=== PATIENT | female | born 1970 | race Caucasian/White ===

== ENCOUNTER 2018-11-26 18:47 | Emergency (ER) | payer OTHER ==
[~2018-11-26] VITALS: Ht 172.7 cm; Wt 99.8 kg
--- NOTE | 2018-11-26 19:25 | NUR ---
Patient BIB [facility] accompanied by [employer] for medical screening for psych evaluation. [id number] for DTS/DTO by [employer] ( Officer badge #[id number])
[2018-11-26 19:50] LABS: BASOPHILS % (AUTO) 0.5 % (0.0-2.0); EOSINOPHILS # (AUTO) 0.1 K/uL (0.0-0.7); EOSINOPHILS % (AUTO) 1.2 % (0.0-7.0); HEMATOCRIT 41.3 % (31.2-41.9); LYMPHOCYTES # (AUTO) 2.1 K/uL (20.0-40.0); LYMPHOCYTES % (AUTO) 25.7 % (20.5-51.5); MEAN CORPUSCULAR HGB CONC 34 g/dL (32.3-35.6); MEAN CORPUSCULAR VOLUME 94.5 fL (75.5-95.3); MONOCYTES # (AUTO) 0.7 K/uL (2.0-10.0); MONOCYTES % (AUTO) 8.9 % (0.0-11.0); NEUTROPHILS # (AUTO) 5.1 K/uL (1.8-8.9); NEUTROPHILS % (AUTO) 63.7 % (38.5-71.5); PLATELET COUNT (AUTO) 318 K/uL (179-408); RED BLOOD CELL COUNT(AUTO) 4.37 MIL/uL (3.63-4.92); WHITE BLOOD COUNT (AUTO) 8.1 K/uL (3.8-11.8)
--- NOTE | 2018-11-26 19:50 | NUR ---
Xray at bedside.
[2018-11-26 19:58] LABS: CARBON DIOXIDE 27 mmol/L (21-32); CHLORIDE 103 mmol/L (98-107); CREATININE 0.8 mg/dL (0.6-1.3); GLUCOSE 103 mg/dL (74-106); POTASSIUM 3.1 mmol/L (3.5-5.1); UREA NITROGEN, BLOOD 15 mg/dL (7-18)
[2018-11-26 20:07] LABS: ETHANOL < 3 MG/DL (0-0)
[2018-11-26 20:12] LABS: THYROID STIMULATING HORMONE 3.252 mIU/mL (0.358-3.740)
[2018-11-26 20:13] LABS: ALANINE AMINOTRANSFERASE 48 U/L (14-59); ALKALINE PHOSPHATASE 76 U/L (50-136); ASPARTATE AMINOTRANSFERASE 35 U/L (15-37); BILIRUBIN,DIRECT 0.2 mg/dL (0.0-0.2); BILIRUBIN,TOTAL 0.9 mg/dL (0.2-1.0); TOTAL PROTEIN, SERUM 7.7 g/dL (6.4-8.2)
[2018-11-26 20:14] LABS: ACETAMINOPHEN < 2.0 ug/mL (10-30)
[2018-11-26] MEDS ORDERED: diphenhydrAMINE 50 MG/1 ML VIAL ONE (20:40)
[2018-11-26] MEDS ORDERED: OLANZAPINE 10 MG VIAL IM ONE ×2 (20:40→20:45)
[2018-11-26] MEDS ORDERED: diphenhydrAMINE 50 MG/1 ML VIAL IM ONE (20:45)
--- NOTE | 2018-11-26 21:49 | NUR ---
[facility] MAINTENANCE DIRECTOR : JACE GAY AT BEDSIDE FOR PATIENT EVALUATION. PER MAINTENANCE DIRECTOR, THE PATIENT HAS AN 8 YEAR OLD CHILD THAT WAS TAKEN BY [facility] CONFIGURATOR.
--- NOTE | 2018-11-26 21:52 | NUR ---
PER DCFS , THE PATIENT HAS A LONG STANDING HISTORY OF PSYCH ISSUES: PATIENT PSYCH HX INCLUDES PTSD, HALLUCINATION , PARANOIA. CONTACT INFO FOR [facility] PRESIDENT AND CMO: [phone] HEARING ON TUESDAY 1030AM. [facility] [address] [place], [place]
--- NOTE | 2018-11-26 22:02 | NUR ---
Pt provided urine sample, sent to lab.
[2018-11-26 22:10] LABS: *BILIRUBIN,URIN 1+ (NEGATIVE); *BLOOD, URINE Trace-intact (NEGATIVE); *KETONES,URINE 3+ (NEGATIVE); *UROBILINOGEN,URINE 0.2 E.U./dl (NORMAL); LEUKOCYTE ESTERASE ,URINE NEGATIVE (NEGATIVE); NITRITE, URINE NEGATIVE (NEGATIVE); UGLUCOSE NEGATIVE (NEGATIVE)
[2018-11-26 22:15] LABS: *CLARITY,URINE HAZY (CLEAR); *COLOR,URINE DARK YELLOW (YELLOW)
[2018-11-26 22:17] LABS: BACTERIA,URINE FEW /HPF (NONE SEEN); CALCIUM OXALATE CRYSTALS,UR MODERATE /HPF (NONE SEEN); MUCUS,URINE MANY /LPF (0-FEW); SQUAMOUS EPITHELIAL CELL,UR MODERATE /HPF (NONE SEEN); WBC,URINE 0-3 /HPF (0-3)
[2018-11-26 22:20] LABS: *AMPHETAMINE, URINE NEGATIVE (NEGATIVE); *BARBITURATE, URINE NEGATIVE (NEGATIVE); *CANNABINOID, URINE NEGATIVE (NEGATIVE); *COCCAINE, URINE NEGATIVE (NEGATIVE); *OPIATE, URINE NEGATIVE (NEGATIVE); *PHENCYCLIDINE SCREEN,URINE NEGATIVE (NEGATIVE)
--- NOTE | 2018-11-27 00:14 | NUR ---
PATIENT NOW AWAKE, ATTEMPTING TO ELOPE. SECURITY CONTACTED FOR SITTER AT THIS TIME.
--- NOTE | 2018-11-27 00:30 | NUR ---
sECURITY AT BEDSIDE FOR PATIENT MONITORING.
--- NOTE | 2018-11-27 02:49 | NUR ---
Pt sleeping at bedside no acute signs of distress.
--- NOTE | 2018-11-27 07:05 | NUR ---
Report given to Sandy TYSON
--- NOTE | 2018-11-27 07:10 | NUR ---
Pt recieved sitting on the floor going through her belongings. Denies pain. commanding officer traffic division at the bedside for safety.
--- NOTE | 2018-11-27 08:00 | NUR ---
Pt given hospital pants, and provided breakfast.
--- NOTE | 2018-11-27 08:05 | NUR ---
Left message for PET pony trimmer Malika, per Dr Perla request. Awaiting call back.
--- NOTE | 2018-11-27 08:10 | NUR ---
Patient is resting comfortably in bed with eyes closed, NAD noted.
--- NOTE | 2018-11-27 08:48 | NUR ---
Recived call from Malika, stating she is not corrosion control technician fror PET, and today Mateus Venkat [facility] is corrosion control technician. Left message for Mateus Robledo, awaiting call back.
--- NOTE | 2018-11-27 09:10 | NUR ---
Yazmin HUGHESW will evaluate the pt, ETA 1 hour.
--- NOTE | 2018-11-27 10:51 | NUR ---
Patient is resting comfortably in bed with eyes closed, NAD noted. Awaiting for PET to eval the Pt.
--- NOTE | 2018-11-27 11:37 | NUR ---
Sukhwinder HUGHESw at the bedside for Psych eval. psychiatric social worker supervisor from [facility], call to speak w/ our PET and info be provided to Pt regarding her child.
--- NOTE | 2018-11-27 12:00 | NUR ---
KAUSHIK PERERA SPOKE TO DR DANIELE SIMS.
--- NOTE | 2018-11-27 12:30 | NUR ---
salvage mend worker Debbie Nair from [facility] at the bedside speaking to pt.
--- NOTE | 2018-11-27 14:22 | NUR ---
Yazmin Strauss at the bedside for Reeval.
[2018-11-27] MEDS ORDERED: OLANZAPINE 5 MG TABLET ONE (14:28)
[2018-11-27] MEDS ORDERED: OLANZAPINE 5 MG TABLET PO ONE (14:30)
--- NOTE | 2018-11-27 14:35 | NUR ---
Pt provided w/ extra clothing per pt's request, snacks provided.
--- NOTE | 2018-11-27 14:38 | NUR ---
Yazmin Strauss Broke the 2250 hold and pt provided w/ senior care, food and medical referals.
--- NOTE | 2018-11-27 14:45 | NUR ---
Pt provided information of,DCFS for follow up. Pt verbalize understanding.
--- NOTE | 2018-11-27 14:57 | NUR ---
Patient discharged in stable conditon. Written and verbal after care instructions given. Patient verbalizes understanding of instructions. Pt walked out of ER w/ steady gait.
[2018-11-27 15:24] VITALS: BP 116/77
== END 2018-11-27 15:25 | disposition home or self-care (01) ==
LOC: ER 18:49
DX: F31.9 Bipolar disorder, unspecified (principal); F29 Unspecified psychosis not due to a substance or known physiological condition
CPT/HCPCS: 36415; 71045; 80048; 80076; 80307; 81001; 84443; 84702; 85025; 96372 ×2; 99284; G0480 ×2; G0481; J1200; A4663; J2358